=== PATIENT | female | born 1960 | race Caucasian/White ===

== ENCOUNTER 2016-08-18 11:47 | Emergency (ER) | payer OTHER ==
[~2016-08-18] VITALS: Ht 154.9 cm; Wt 68.2 kg
[~2016-08-18 11:47] MED LIST: EFFEXOR PO; HYDR-3498 PO; LEVOTHYROXINE PO; PROVENTIL PO; ZOF8 PO
[2016-08-18 11:52] VITALS: Ht 154.9 cm; Wt 68.2 kg
--- NOTE | 2016-08-18 12:17 | ERA ---
ER Documentation Chief Complaint Date/Time DATE: 08/18/16 TIME: 12:17 Chief Complaint depression-no si or hi; ROS All systems reviewed and are negative except as per history of present illness. Medications Home Meds Reported Medications Escitalopram Oxalate* (Escitalopram Oxalate*) 20 Mg Tablet, 20 MG PO DAILY, #30 TAB 08/18/16 Gabapentin* (Gabapentin*) 300 Mg Capsule, 600 MG PO QHS, #180 08/18/16 Levothyroxine Sodium* (Levothyroxine Sodium*) 88 Mcg Tablet, 88 MCG PO AC BREAKFAST, #30 08/18/16 Discontinued Reported Medications [Proventil Puff] No Conflict Check, PO Y for SHORTNESS OF BREATH 07/06/13 [Effexor] No Conflict Check, PO DAILY 07/06/13 [Levothyroxine] No Conflict Check, PO DAILY 07/06/13 Discontinued Scripts Hydrocodone Bit-Acetaminophen* ([place]*) 5-325 Mg Tab, 1 TAB PO Q6 Y for PAIN, # 14 TAB Prov:BRENDEN PRESSLEY PA-C 11/14/14 Ondansetron Hcl* (Zofran* ODT) 8 mg -ODT Tab.disper, 8 MG PO Q6 Y for NAUSEA AND /OR VOMITING, #14 TAB Prov:BRENDEN PRESSLEY PA-C 11/14/14 Allergies Allergies: Coded Allergies: No Known Allergies (Unverified Allergy, Unknown, 07/06/13) PMhx/Soc History of Surgery: Yes (cholecystectomy, bilat carpal tunnel sx, myomectomy) Anesthesia Reaction: No Hx Neurological Disorder: No Hx Respiratory Disorders: No Hx Cardiac Disorders: Yes (high cholesterol) Hx Psychiatric Problems: Yes (depression, anxiety) Hx Miscellaneous Medical Probl: Yes (migraine) Hx Alcohol Use: No Hx Substance Use: No Hx Tobacco Use: Yes Physical Exam Vitals Vital Signs Date Time Temp Pulse Resp B/P Pulse Ox O2 Delivery O2 Flow Rate FiO2 08/18/16 11:52 98.0 90 18 136/71 100 Physical Exam Const: [] Head: Atraumatic Eyes: Normal Conjunctiva ENT: Normal External Ears, Nose and Mouth. Neck: Full range of motion..~ No meningismus. Resp: Clear to auscultation bilaterally Cardio: Regular rate and rhythm, no murmurs Abd: Soft, non tender, non distended. Normal bowel sounds Skin: No petechiae or rashes Back: No midline or flank tenderness Ext: No cyanosis, or edema Neur: Awake and alert Psych: Normal Mood and Affect Result Diagram: 08/18/16 1230 08/18/16 1230 Results 24 hrs Laboratory Tests Test 08/18/16 12:30 White Blood Count 5.310^3/ul Red Blood Count 4.0610^6/ul Hemoglobin 12.8g/dl Hematocrit 37.9% Mean Corpuscular Volume 93.3fl Mean Corpuscular Hemoglobin 31.5pg Mean Corpuscular Hemoglobin Concent 33.8g/dl Red Cell Distribution Width 12.2% Platelet Count 77378^3/UL Mean Platelet Volume 12.5fl Neutrophils % 43.1% Lymphocytes % 42.8% Monocytes % 8.9% Eosinophils % 4.0% Basophils % 0.8% Nucleated Red Blood Cells % 0.0/100WBC Neutrophils # 2.310^3/ul Lymphocytes # 2.310^3/ul Monocytes # 0.510^3/ul Eosinophils # 0.210^3/ul Basophils # 0.010^3/ul Nucleated Red Blood Cells # 0.010^3/ul Sodium Level 143mmol/L Potassium Level 4.1mmol/L Chloride Level 110mmol/L Carbon Dioxide Level 27mmol/L Anion Gap 10 Blood Urea Nitrogen 14mg/dl Creatinine 0.80mg/dl Glucose Level 92mg/dl Calcium Level 9.6mg/dl Total Bilirubin 0.1mg/dl Direct Bilirubin 0.00mg/dl Indirect Bilirubin 0.1mg/dl Aspartate Amino Transf (AST/SGOT) 19IU/L Alanine Aminotransferase (ALT/SGPT) 34IU/L Alkaline Phosphatase 63IU/L Total Protein 6.8g/dl Albumin 4.5g/dl Globulin 2.30g/dl Albumin/Globulin Ratio 1.95 Salicylates Level < 1.0mg/dl Urine Opiates Screen Negative Acetaminophen Level < 10.0ug/ml Urine Barbiturates Negative Urine Amphetamines Screen POSITIVE Urine Benzodiazepines Screen Negative Urine Cocaine Screen Negative Urine Cannabinoids Positive Ethyl Alcohol Level < 10.0mg/dl TRUDY OTERO MD Aug 18, 2016 12:17
[2016-08-18 12:33] LABS: ADD SCAN DIFF NO
[2016-08-18 12:35] LABS: BASOPHILS % 0.8 % (0.0-2.0); EOSINOPHILS # 0.2 10^3/ul (0.0-0.5); HEMATOCRIT 37.9 % (37.0-47.0); HEMOGLOBIN 12.8 g/dl (12.0-16.0); LYMPHOCYTES # 2.3 10^3/ul (0.8-2.9); LYMPHOCYTES % 42.8 % (15.0-51.0); MEAN CORPUSCULAR HEMOGLOBIN 31.5 pg (29.0-33.0); MEAN CORPUSCULAR HGB CONC 33.8 g/dl (32.0-37.0); MEAN CORPUSCULAR VOLUME 93.3 fl (82.0-101.0); MEAN PLATELET VOLUME 12.5 fl (7.4-10.4); MONOCYTE # 0.5 10^3/ul (0.3-0.9); MONOCYTES % 8.9 % (0.0-11.0); NEUTROPHIL # 2.3 10^3/ul (1.6-7.5); NEUTROPHILS % 43.1 % (39.0-77.0); PLATELET COUNT 153 10^3/UL (140-415); RED BLOOD COUNT 4.06 10^6/ul (4.20-5.40); RED CELL DISTRIBUTION WIDTH 12.2 % (11.5-14.5); WHITE BLOOD COUNT 5.3 10^3/ul (4.8-10.8)
[2016-08-18 12:53] LABS: ALANINE AMINOTRANSFERASE 34 IU/L (13-69); ALBUMIN 4.5 g/dl (3.3-4.9); ALBUMIN/GLOBULIN RATIO 1.95; ALKALINE PHOSPHATASE 63 IU/L (42-121); ANION GAP 10 (8-16); ASPARTATE AMINO TRANSFERASE 19 IU/L (15-46); BILIRUBIN,INDIRECT 0.1 mg/dl (0-1.1); BILIRUBIN,TOTAL 0.1 mg/dl (0.2-1.3); BLOOD UREA NITROGEN 14 mg/dl (7-20); CALCIUM 9.6 mg/dl (8.4-10.2); CARBON DIOXIDE 27 mmol/L (21-31); CHLORIDE 110 mmol/L (97-110); GLUCOSE 92 mg/dl (70-220); POTASSIUM 4.1 mmol/L (3.5-5.1); SODIUM 143 mmol/L (135-144); TOTAL PROTEIN 6.8 g/dl (6.1-8.1)
[2016-08-18 12:54] LABS: ACETAMINOPHEN < 10.0 ug/ml (10.0-30.0); ETHANOL < 10.0 mg/dl; SALICYLATE < 1.0 mg/dl (5.0-30.0)
[2016-08-18] MEDS ORDERED: LEVO88TA3 PO (13:06)
[2016-08-18] MEDS ORDERED: GABA300C16 PO (13:07)
[2016-08-18] MEDS ORDERED: ESCI20TA38 PO (13:07)
[2016-08-18 13:28] LABS: CANNABINOIDS Positive (NEGATIVE)
[2016-08-18 13:29] LABS: BARBITURATES Negative (NEGATIVE); BENZODIAZEPINES Negative (NEGATIVE); COCAINE Negative (NEGATIVE); OPIATES Negative (NEGATIVE)
--- NOTE | 2016-08-18 14:20 | ERA ---
ER Documentation Chief Complaint Date/Time DATE: 08/18/16 TIME: 14:18 Chief Complaint depression-no si or hi; HPI This is a 56-year-old female who is here for depression. The patient states that she has had chronic depression with a prior suicide attempt in the past. The patient states she has been depressed for a year and a half now since she lost both of her parents. She states that she is tired of feeling depressed. She says she is tired of staying in bed all day not eating out of the house. The patient states that she has multiple psych medications and does not take them like she supposed to. She says that she knows that she does not want to live anymore but says that she would not act on his suicidal thoughts denies homicidal thoughts. No physical complaints ROS All systems reviewed and are negative except as per history of present illness. Medications Home Meds Reported Medications Escitalopram Oxalate* (Escitalopram Oxalate*) 20 Mg Tablet, 20 MG PO DAILY, #30 TAB 08/18/16 Gabapentin* (Gabapentin*) 300 Mg Capsule, 600 MG PO QHS, #180 08/18/16 Levothyroxine Sodium* (Levothyroxine Sodium*) 88 Mcg Tablet, 88 MCG PO AC BREAKFAST, #30 08/18/16 Discontinued Reported Medications [Proventil Puff] No Conflict Check, PO Y for SHORTNESS OF BREATH 07/06/13 [Effexor] No Conflict Check, PO DAILY 07/06/13 [Levothyroxine] No Conflict Check, PO DAILY 07/06/13 Discontinued Scripts Hydrocodone Bit-Acetaminophen* ([place]*) 5-325 Mg Tab, 1 TAB PO Q6 Y for PAIN, # 14 TAB Prov:BRENDEN PRESSLEY PA-C 11/14/14 Ondansetron Hcl* (Zofran* ODT) 8 mg -ODT Tab.disper, 8 MG PO Q6 Y for NAUSEA AND /OR VOMITING, #14 TAB Prov:BRENDEN PRESSLEY PA-C 11/14/14 Allergies Allergies: Coded Allergies: No Known Allergies (Unverified Allergy, Unknown, 07/06/13) PMhx/Soc Medical and Surgical Hx: pt denies Medical Hx, pt denies Surgical Hx History of Surgery: Yes (cholecystectomy, bilat carpal tunnel sx, myomectomy) Anesthesia Reaction: No Hx Neurological Disorder: No Hx Respiratory Disorders: No Hx Cardiac Disorders: Yes (high cholesterol) Hx Psychiatric Problems: Yes (depression, anxiety) Hx Miscellaneous Medical Probl: Yes (migraine) Hx Alcohol Use: No Hx Substance Use: No Hx Tobacco Use: No Smoking Status: Current every day smoker FmHx Family History: No coronary disease Physical Exam Vitals Vital Signs Date Time Temp Pulse Resp B/P Pulse Ox O2 Delivery O2 Flow Rate FiO2 08/18/16 11:52 98.0 90 18 136/71 100 Physical Exam Const: Well-developed, well-nourished Head: Atraumatic, normocephalic Eyes: Normal Conjunctiva, PERRLA, EOMI, normal sclera, no nystagmus ENT: Normal External Ears, Nose and Mouth, moist mucus membranes. Neck: Full range of motion. No meningismus, no lymphadenopathy. Resp: Clear to auscultation bilaterally, no wheezing, rhonchi, rales Cardio: Regular rate and rhythm, no murmurs, S1 S2 present Abd: Soft, non tender x 4, non distended. Normal bowel sounds, no guarding or rebound, no pulsitile abdominal masses or bruits Skin: No petechiae or rashes, no ecchymosis , no maculopapular rash Back: No midline or flank tenderness Ext: No cyanosis, or edema, FROM x 4, normal inspection, neurovascularly intact x 4 Neur: Awake and alert, STR 5/5 x 4, sensation intact x 4, no focal findings, cerebellum intact Psych: [Tearful, depressed Result Diagram: 08/18/16 1230 08/18/16 1230 Results 24 hrs Laboratory Tests Test 08/18/16 12:30 White Blood Count 5.310^3/ul Red Blood Count 4.0610^6/ul Hemoglobin 12.8g/dl Hematocrit 37.9% Mean Corpuscular Volume 93.3fl Mean Corpuscular Hemoglobin 31.5pg Mean Corpuscular Hemoglobin Concent 33.8g/dl Red Cell Distribution Width 12.2% Platelet Count 07554^3/UL Mean Platelet Volume 12.5fl Neutrophils % 43.1% Lymphocytes % 42.8% Monocytes % 8.9% Eosinophils % 4.0% Basophils % 0.8% Nucleated Red Blood Cells % 0.0/100WBC Neutrophils # 2.310^3/ul Lymphocytes # 2.310^3/ul Monocytes # 0.510^3/ul Eosinophils # 0.210^3/ul Basophils # 0.010^3/ul Nucleated Red Blood Cells # 0.010^3/ul Sodium Level 143mmol/L Potassium Level 4.1mmol/L Chloride Level 110mmol/L Carbon Dioxide Level 27mmol/L Anion Gap 10 Blood Urea Nitrogen 14mg/dl Creatinine 0.80mg/dl Glucose Level 92mg/dl Calcium Level 9.6mg/dl Total Bilirubin 0.1mg/dl Direct Bilirubin 0.00mg/dl Indirect Bilirubin 0.1mg/dl Aspartate Amino Transf (AST/SGOT) 19IU/L Alanine Aminotransferase (ALT/SGPT) 34IU/L Alkaline Phosphatase 63IU/L Total Protein 6.8g/dl Albumin 4.5g/dl Globulin 2.30g/dl Albumin/Globulin Ratio 1.95 Salicylates Level < 1.0mg/dl Urine Opiates Screen Negative Acetaminophen Level < 10.0ug/ml Urine Barbiturates Negative Urine Amphetamines Screen POSITIVE Urine Benzodiazepines Screen Negative Urine Cocaine Screen Negative Urine Cannabinoids Positive Ethyl Alcohol Level < 10.0mg/dl Procedures/MDM Laboratory workup is unremarkable. We will have telemetry psychiatrist evaluate the patient. She may just need to get back on her medications. She does have a history of suicide attempt in the past and says she does not want to live currently, but says she would not act on it. We will get psychiatrist input for inpatient treatment Psych evaluation was done and the patient will be transferred to inpatient Departure Diagnosis: Primary Impression: Depression Qualified Code: F32.9 - Depression, unspecified depression type Additional Impression: Suicidal thoughts Condition: PEÑA Bautista DO Aug 18, 2016 14:20
[2016-08-18] MEDS ORDERED: NICOTINE (14 MG/24 HR) PATCH TRANSDERM ONE (15:00)
--- NOTE | 2016-08-18 15:09 | PSY ---
Date/Time of Note Date/Time of Note DATE: 08/18/16 TIME: 15:03 Psychiatric Subjective Eval Consent Pt consented to telemedicine: Yes Subjective Evaluation Patient location: emergency Chief Complaint: depression-no si or hi; History of present illness d/w Dr Vallejo 56 yo single disabled female self presenting to ED c/o depressed mood and feeling like she can not go on anymore. She dneies Si but then asked what she will do if discharged says : "She will take meds and will go to sleep" implying she can OD. She dneies ah or vh, denies hi; she says she has not been showering or eating, no motivation. She is off meds for a year. She dneies drug use but UDS + amph. Past psychiatric history priro hx SA and intp Hospitalization: Suicidal Attempt(s) Family History denies Medical history Problems Medical Problems: (1) Depression Status: Acute (2) Headache Status: Acute (3) Suicidal thoughts Status: Acute Allergies: Coded Allergies: No Known Allergies (Unverified Allergy, Unknown, 07/06/13) Substance Abuse Substance abuse history: Yes Prior substance abuse treatmen: No Social History Marital status: Level of education: HS DPA/Conservatorship: No Occupation/Usp: on ssi Psychiatric Objective Eval Mental Status Examination: Appearance: Disheveled Eye Contact: Fair Psychomotor Activity: Normal Behavior: Cooperative Speech: Clear AFFECT: Depressed Mood: Depressed Though Process: Linear Thought Content: Normal Suicidal: Yes Homicidal: No Orientation: x4 Cognition: Alert Insight: Impared Judgement: Impared Laboratory Results Laboratory Tests Test 08/18/16 12:30 White Blood Count 5.310^3/ul Red Blood Count 4.0610^6/ul Hemoglobin 12.8g/dl Hematocrit 37.9% Mean Corpuscular Volume 93.3fl Mean Corpuscular Hemoglobin 31.5pg Mean Corpuscular Hemoglobin Concent 33.8g/dl Red Cell Distribution Width 12.2% Platelet Count 89492^3/UL Mean Platelet Volume 12.5fl Neutrophils % 43.1% Lymphocytes % 42.8% Monocytes % 8.9% Eosinophils % 4.0% Basophils % 0.8% Nucleated Red Blood Cells % 0.0/100WBC Neutrophils # 2.310^3/ul Lymphocytes # 2.310^3/ul Monocytes # 0.510^3/ul Eosinophils # 0.210^3/ul Basophils # 0.010^3/ul Nucleated Red Blood Cells # 0.010^3/ul Sodium Level 143mmol/L Potassium Level 4.1mmol/L Chloride Level 110mmol/L Carbon Dioxide Level 27mmol/L Anion Gap 10 Blood Urea Nitrogen 14mg/dl Creatinine 0.80mg/dl Glucose Level 92mg/dl Calcium Level 9.6mg/dl Total Bilirubin 0.1mg/dl Direct Bilirubin 0.00mg/dl Indirect Bilirubin 0.1mg/dl Aspartate Amino Transf (AST/SGOT) 19IU/L Alanine Aminotransferase (ALT/SGPT) 34IU/L Alkaline Phosphatase 63IU/L Total Protein 6.8g/dl Albumin 4.5g/dl Globulin 2.30g/dl Albumin/Globulin Ratio 1.95 Salicylates Level < 1.0mg/dl Urine Opiates Screen Negative Acetaminophen Level < 10.0ug/ml Urine Barbiturates Negative Urine Amphetamines Screen POSITIVE Urine Benzodiazepines Screen Negative Urine Cocaine Screen Negative Urine Cannabinoids Positive Ethyl Alcohol Level < 10.0mg/dl Assessment and Plan Assessment/Diagnosis [place] I: MAJOR DEPRESSIVE DISORDER RECURRENT SEVERE. STIMULATN USE DISORDER [place] II: DEFERED [place] III: NAD [place] IV: MODERATE [place] V: GAF 25 Recommendation/Plan Medication Management ABILIFY 2 MG POQD Psychotherapy DEFER TO INPT Follow-up/Disposition TRANSFER TO INPT PSYCH FOR DTS. 5150 Recommendation: CAN GO VOLUNTARY SURJIT MCKEON MD Aug 18, 2016 15:09
[2016-08-18] MEDS ORDERED: NICOTINE (7 MG/24 HR) PATCH TRANSDERM ONE (15:30)
--- NOTE | 2016-08-18 15:58 | EN ---
Date/Time of Note Date/Time of Note DATE: 08/18/16 TIME: 15:57 ER Progress Note Patient has been evaluated by PMR T. The patient states she is no longer suicidal. The PMI T feels that the patient is safe for discharge. I did speak with the patient myself and she denies suicidal homicidal thoughts and states that she was feeling very depressed before. She states that she is feeling better now does not want to hurt herself in any way and would like to follow-up with her psychiatrist. She seems very sincere in this. Per specialist recommendation I will discharge the patient currently with follow-up NANCIE WHITE DO Aug 18, 2016 15:58
[2016-08-18 16:33] VITALS: BP 125/78; PULSE 75; RESP 17
== END 2016-08-18 16:34 | disposition home or self-care (01) ==
LOC: E/R 11:47
DX: F32.9 Major depressive disorder, single episode, unspecified (principal); R40.2252 Coma scale, best verbal response, oriented, at arrival to emergency department; R45.851 Suicidal ideations; F17.210 Nicotine dependence, cigarettes, uncomplicated; R40.2142 Coma scale, eyes open, spontaneous, at arrival to emergency department; R40.2362 Coma scale, best motor response, obeys commands, at arrival to emergency department
CPT/HCPCS: 36415; 80053; 80306; 80307; 85025; 99283